=== PATIENT | male | born 1945 | race Caucasian/White ===

== ENCOUNTER 2018-10-30 18:35 | Emergency (ER) | payer MEDICARE, OTHER ==
[~2018-10-30] VITALS: Ht 190.5 cm; Wt 110.5 kg
[2018-10-30] MEDS ORDERED: MORPHINE SULFATE 4 MG/ML, 1ML ONE (19:09)
[2018-10-30 19:14] LABS: INTERNATIONAL NORMALIZED RATIO 1.29 (0.93-1.1); PROTHROMBIN TIME 13.5 Seconds (9.6-11.5)
[2018-10-30 19:15] LABS: ALANINE AMINOTRANSFERASE 19 U/L (12-78); ALBUMIN 3.7 g/dL (3.4-5.0); ANION GAP 5 mmol/L (5-15); CALCIUM 8.6 mg/dL (8.5-10.1); CHLORIDE 108 mmol/L (98-107); CREATININE 1.45 mg/dL (0.7-1.3)
[2018-10-30 19:16] VITALS: BP 150/92
[2018-10-30 19:17] LABS: ALKALINE PHOSPHATASE 64 U/L (45-117); BILIRUBIN,TOTAL 0.8 mg/dL (0.2-1.0)
[2018-10-30] MEDS ORDERED: MORPHINE SULFATE 4 MG/ML, 1ML IVPush PRN (19:30)
[2018-10-30] MEDS ORDERED: PLEASE ENTER ALLERGIES MC SCH (19:30)
== END 2018-10-30 20:30 | disposition home or self-care (01) ==
LOC: ED 19:12
DX: S16.1XXA Strain of muscle, fascia and tendon at neck level, initial encounter (principal); S39.012A Strain of muscle, fascia and tendon of lower back, initial encounter; T14.8XXA Other injury of unspecified body region, initial encounter; R51 Headache; E03.9 Hypothyroidism, unspecified; I48.91 Unspecified atrial fibrillation; I10 Essential (primary) hypertension; W01.0XXA Fall on same level from slipping, tripping and stumbling without subsequent striking against object, initial encounter; Y93.01 Activity, walking, marching and hiking; Y92.410 Unspecified street and highway as the place of occurrence of the external cause; Y99.8 Other external cause status
CPT/HCPCS: 36415; 70450; 72125; 72131; 80053; 85610; 85730; 96374

== ENCOUNTER 2018-11-06 14:03 | Emergency (ER) | payer MEDICARE, OTHER ==
[~2018-11-06] VITALS: Ht 193 cm; Wt 111.7 kg
[2018-11-06 14:20] VITALS: BP 118/70
[2018-11-06] MEDS ORDERED: RIVA20TA PO (15:41)
[2018-11-06] MEDS ORDERED: CARV25TA12 PO (15:41)
[2018-11-06] MEDS ORDERED: CELE100C PO (15:41)
[2018-11-06] MEDS ORDERED: TAMS0.4C2 PO (15:41)
[2018-11-06] MEDS ORDERED: VALS320T2 PO (15:41)
[2018-11-06] MEDS ORDERED: CARV-39 PO (15:41)
[2018-11-06] MEDS ORDERED: FLUO20CA8 PO (15:41)
[2018-11-06] MEDS ORDERED: THYR60TA PO (15:41)
[2018-11-06] MEDS ORDERED: AMLO10TA6 PO (15:41)
== END 2018-11-06 15:59 | disposition home or self-care (01) ==
LOC: ED 15:49
DX: S06.0X0A Concussion without loss of consciousness, initial encounter (principal); E03.9 Hypothyroidism, unspecified; I48.91 Unspecified atrial fibrillation; I10 Essential (primary) hypertension; W18.30XA Fall on same level, unspecified, initial encounter; Y93.89 Activity, other specified; Y92.009 Unspecified place in unspecified non-institutional (private) residence as the place of occurrence of the external cause; Y99.2 Volunteer activity
CPT/HCPCS: 70450; 99284

== ENCOUNTER → 2019-02-18 | Outpatient (CLI) | payer MEDICARE, OTHER ==
[~2019-02-18] MED LIST: AMLO10TA8 PO; CARV-39 PO; CARV25TA12 PO; CELE100C PO; FLUO20CA8 PO; RIVA20TA PO; TAMS0.4C2 PO; THYR60TA PO; VALS320T2 PO
== END | disposition home or self-care (01) ==
LOC: CFH 13:03
PROVIDERS: ATTEND Internal Medicine Cardiovascular Disease
DX: I08.1 Rheumatic disorders of both mitral and tricuspid valves (principal); I31.3 Pericardial effusion (noninflammatory); I48.2 Chronic atrial fibrillation
CPT/HCPCS: 93306

== ENCOUNTER → 2019-04-11 | Outpatient (CLI) | payer MEDICARE, OTHER ==
[~2019-04-11] MED LIST changes: +REGADENOSON 0.4 MG/5 ML SYRINGE ONE
== END | disposition home or self-care (01) ==
LOC: CVU 06:42
PROVIDERS: ATTEND Nurse Practitioner Family
DX: I08.3 Combined rheumatic disorders of mitral, aortic and tricuspid valves (principal); I21.19 ST elevation (STEMI) myocardial infarction involving other coronary artery of inferior wall; I31.3 Pericardial effusion (noninflammatory)
CPT/HCPCS: 78452; 93017; 93306; A9502; J2785

== ENCOUNTER 2019-05-17 11:06 | Outpatient (CLI) | payer MEDICARE, OTHER | END 2019-05-17 23:59 | disposition home or self-care (01) | LOC: STAR 11:06 | PROVIDERS: ATTEND Internal Medicine Cardiovascular Disease | DX: I10 Essential (primary) hypertension (principal) | CPT/HCPCS: 36415; 80048; 85025 ==

== ENCOUNTER 2019-05-23 10:04 | Day surgery (SDC) | payer MEDICARE, OTHER ==
[~2019-05-23 10:04] MED LIST changes: +OMEP-110 PO; -REGADENOSON 0.4 MG/5 ML SYRINGE ONE
[2019-05-23] MEDS ORDERED: SODIUM CHLORIDE 0.9% 1,000 ML IV SCH ×2 (10:18→12:48)
[2019-05-23] MEDS ORDERED: PLEASE ENTER HEIGHT AND WEIGHT MC SCH (10:30)
[2019-05-23] MEDS ORDERED: TICAGRELOR 90 MG TABLET ONE (11:49)
[2019-05-23] MEDS ORDERED: FENTANYL PF 100 MCG/2ML ONE (11:49)
[2019-05-23] MEDS ORDERED: NITROGLYCERIN 5 MG/ML, 10ML ONE (11:49)
[2019-05-23] MEDS ORDERED: VERAPAMIL 2.5 MG/ML, 2ML ONE (11:49)
[2019-05-23] MEDS ORDERED: MIDAZOLAM 1 MG/ML, 5ML ONE (11:49)
[2019-05-23] MEDS ORDERED: HEPARIN 1,000 UNITS/ML, 10ML ONE (11:50)
[2019-05-23] MEDS ORDERED: LIDOCAINE 2%, 20ML ONE (11:50)
== END 2019-05-23 15:19 | disposition home or self-care (01) ==
LOC: CACL 10:04
PROVIDERS: ATTEND Internal Medicine Cardiovascular Disease
DX: I20.9 Angina pectoris, unspecified (principal); I48.2 Chronic atrial fibrillation; I13.10 Hypertensive heart and chronic kidney disease without heart failure, with stage 1 through stage 4 chronic kidney disease, or unspecified chronic kidney disease; N18.3 Chronic kidney disease, stage 3 (moderate); E03.9 Hypothyroidism, unspecified; K21.9 Gastro-esophageal reflux disease without esophagitis; G47.30 Sleep apnea, unspecified; Z79.890 Hormone replacement therapy; Z79.01 Long term (current) use of anticoagulants; Z79.899 Other long term (current) drug therapy; Z98.890 Other specified postprocedural states; Z86.010 Personal history of colon polyps
CPT/HCPCS: 93458; 99156; C1769; C1894; J1644; J2250; J3010; Q9967

== ENCOUNTER 2019-09-16 20:20 | Emergency (ER) | payer MEDICARE, OTHER ==
[~2019-09-16] VITALS: Ht 193 cm; Wt 110.0 kg
[2019-09-16] MEDS ORDERED: LIDOCAINE 2%, 20ML SQ ONE (21:30)
[2019-09-16] MEDS ORDERED: LIDOCAINE 1%-EPI 1:100K, 20ML ONE (21:38)
[2019-09-16] MEDS ORDERED: LIDOCAINE 1%-EPI 1:100K, 20ML SQ ONE (22:00)
[2019-09-16 22:51] VITALS: BP 127/68
== END 2019-09-16 22:50 | disposition home or self-care (01) ==
LOC: ED 22:47
DX: L02.211 Cutaneous abscess of abdominal wall (principal); L03.311 Cellulitis of abdominal wall; I10 Essential (primary) hypertension; E03.9 Hypothyroidism, unspecified; I48.91 Unspecified atrial fibrillation; Z90.89 Acquired absence of other organs
CPT/HCPCS: 10060; 87070; 87077; 87147; 87186; 87205; 99283

== ENCOUNTER 2019-09-18 14:12 | Emergency (ER) | payer MEDICARE, OTHER ==
[~2019-09-18] VITALS: Ht 193 cm; Wt 110.6 kg
[2019-09-18 14:15] VITALS: BP 126/73
--- NOTE | 2019-09-18 14:31 | NUR ---
PT HERE TODAY FOR RECHECK ON WOUND- WAS SEEN HERE IN THE ER ON MONDAY. HAD CYST LANCED AND DRAINED AND PACKED. WAS TOLD TO COME BACK FOR 48 HOUR RECHECK. PT HAS BEEN CHANGING DRESSINGS APPROPRIATELY EVERYDAY. PT PRESENTS WITH DRESSING THAT WAS CHANGED THIS MORNING- GAUZE AND TEGADERM WITH SLIGHT RED DRAINAGE NOTED. [facility]
--- NOTE | 2019-09-18 15:02 | NUR ---
WOUND IRRIGATED PER PA ORDER.
--- NOTE | 2019-09-18 15:19 | NUR ---
PA AT BEDSIDE PACKING WOUND NOW.
== END 2019-09-18 15:46 | disposition home or self-care (01) ==
LOC: ED 15:33
DX: Z48.01 Encounter for change or removal of surgical wound dressing (principal); I10 Essential (primary) hypertension; E03.9 Hypothyroidism, unspecified; I48.91 Unspecified atrial fibrillation; Z90.49 Acquired absence of other specified parts of digestive tract
CPT/HCPCS: 99283

== ENCOUNTER 2019-09-20 15:03 | Emergency (ER) | payer MEDICARE, OTHER ==
[~2019-09-20] VITALS: Ht 193 cm; Wt 111.2 kg
[2019-09-20 15:05] VITALS: BP 112/64
--- NOTE | 2019-09-20 15:23 | NUR ---
PATIENT BROUGHT BACK FROM TRIAGE FOR THIRD ROUND OF WOUND PACKING OF ABDOMINAL CYST. PATIENT IS ALERT, ORIENTED, WARM AND DRY.
--- NOTE | 2019-09-20 16:11 | NUR ---
DISCHARGE INSTRUCTIONS REVIEWED. NO QUESTIONS AT THIS TIME
== END 2019-09-20 16:17 | disposition home or self-care (01) ==
LOC: ED 16:10
DX: L02.211 Cutaneous abscess of abdominal wall (principal); Z90.49 Acquired absence of other specified parts of digestive tract; I10 Essential (primary) hypertension; E03.9 Hypothyroidism, unspecified; I48.91 Unspecified atrial fibrillation
CPT/HCPCS: 99283

== ENCOUNTER → 2019-11-13 | Outpatient (CLI) | payer MEDICARE, OTHER | END | disposition home or self-care (01) | LOC: CVU 10:50 | PROVIDERS: ATTEND Internal Medicine Cardiovascular Disease | CPT/HCPCS: 93306 ==

== ENCOUNTER 2020-04-24 17:54 | Emergency (ER) | payer MEDICARE, OTHER ==
[~2020-04-24] VITALS: Ht 193 cm; Wt 103.0 kg
[~2020-04-24 17:54] MED LIST changes: +FLUO20CA23 PO; -FLUO20CA8 PO
[2020-04-24 17:56] VITALS: BP 161/82
[2020-04-24] MEDS ORDERED: HYDROcodone/APAP 5/325 TABLET PO ONE (18:30)
[2020-04-24] MEDS ORDERED: HYDROcodone/APAP 5/325 TABLET ONE (18:34)
--- NOTE | 2020-04-24 18:52 | NUR ---
bedside report given to [place] MAE.
--- NOTE | 2020-04-24 19:03 | NUR ---
Pt resting in bed, pt placed in aircast and given cane for ambulation. Pt resting and reports he feels better.
--- NOTE | 2020-04-24 19:57 | NUR ---
Walker given to patient with wheels and tolerating well. NADN .
--- NOTE | 2020-04-24 20:08 | NUR ---
Patient/Caregiver given discharge instructions and they have confirmed that they understand the instructions. Patient ambulatory with steady gait.
== END 2020-04-24 20:11 | disposition home or self-care (01) ==
LOC: ED 19:42
DX: S93.492A Sprain of other ligament of left ankle, initial encounter (principal); I48.91 Unspecified atrial fibrillation; I10 Essential (primary) hypertension; E03.9 Hypothyroidism, unspecified; Z90.89 Acquired absence of other organs; X50.0XXA Overexertion from strenuous movement or load, initial encounter; Y93.89 Activity, other specified; Y92.328 Other athletic field as the place of occurrence of the external cause; Y99.8 Other external cause status
CPT/HCPCS: 99283

== ENCOUNTER 2020-06-24 11:08 | Outpatient (CLI) | payer MEDICARE, OTHER | END 2020-06-24 23:59 | disposition home or self-care (01) | LOC: CFH 11:08 | PROVIDERS: ATTEND Internal Medicine Cardiovascular Disease | DX: I08.3 Combined rheumatic disorders of mitral, aortic and tricuspid valves (principal) | CPT/HCPCS: 93306 ==